=== PATIENT | male | born 1980 | race Caucasian/White ===

== ENCOUNTER 2018-11-10 18:46 | Emergency (ER) | payer BC ==
[2018-11-10] MEDS ORDERED: Ketorolac 60 MG/2 ML SDV IM ONE (19:13)
[2018-11-10] MEDS ORDERED: methylPREDNISolone Sodium Succinate 125 MG/2 ML SDV IM ONE (19:13)
--- NOTE | 2018-11-10 19:19 | EDM.PDOC ---
ED HPI GENERAL MEDICAL PROBLEM - General Chief Complaint: Back Pain or Injury Stated Complaint: PINCHED NERVE Time Seen by Provider: 11/10/18 19:04 Source of Information: Reports: Patient History Limitations: Reports: No Limitations - History of Present Illness INITIAL COMMENTS - FREE TEXT/NARRATIVE: This is a 38-year-old male. He works on the [employer] and he states that usually once a year he'll conduct week his back and when he does this he normally gets a steroid shot and then after about 24 hours his back is good to go. He states he make sure he does proper lifting but even with that sometimes his back it's out of order. The pain normally is in the right SI joint and seems to go down the posterior leg to his knee and sometimes in the lower back as well. He states it is the typical right lower back and down the back of his thigh. He denies any other change in symptoms. He is somewhat stiff and slow to get up from the bed but he is able to do so. He denies any other acute symptoms. He has no numbness tingling in the right lower extremity. Back Pain Score (Numeric/FACES): 4 Past Medical History - Past Health History Medical/Surgical History: Denies Medical/Surgical History Social & Family History - Tobacco Use Smoking Status *Q: Current Every Day Smoker Years of Tobacco use: 5 Packs/Tins Daily: 0.2 - Caffeine Use Caffeine Use: Reports: Coffee ED ROS GENERAL - Review of Systems Review Of Systems: See Below Constitutional: Denies: Fever, Chills HEENT: Reports: No Symptoms Respiratory: Reports: No Symptoms Cardiovascular: Reports: No Symptoms Endocrine: Reports: No Symptoms GI/Abdominal: Reports: No Symptoms : Reports: No Symptoms Musculoskeletal: Reports: Other (As per history of present illness) Skin: Reports: No Symptoms Neurological: Reports: Other (Right sciatica) Psychiatric: Reports: No Symptoms Hematologic/Lymphatic: Reports: No Symptoms ED EXAM,LOWER BACK PAIN/INJURY - Physical Exam Exam: See Below Exam Limited By: No Limitations General Appearance: Alert, WD/WN, No Apparent Distress Eye Exam: Bilateral Eye: Normal Inspection Ears: Normal External Exam Nose: Normal Inspection Throat/Mouth: Normal Inspection, Normal Lips, Normal Voice, No Airway Compromise Head: Normocephalic Neck: Supple Respiratory/Chest: No Respiratory Distress Back Exam: Other (He describes tenderness of the right SI joint in the right lower back slightly, the pain runs down the posterior thigh to about the knee but no further, there is no numbness or tingling of his toes, he is able to bend but it is slow.) Extremities: Normal Inspection, Normal Range of Motion Neurological: Alert, Normal Mood/Affect Psychiatric: Normal Affect, Normal Mood Skin Exam: Warm, Dry Course - Vital Signs Last Recorded V/S: Last Vital Signs Temp 98.2 F 11/10/18 18:53 Pulse 61 11/10/18 18:53 Resp 14 11/10/18 18:53 BP 111/56 L 11/10/18 18:53 Pulse Ox 100 11/10/18 18:53 - Orders/Labs/Meds Orders: Active Orders 24 hr Category Date Time Status Ketorolac [Toradol] Med 11/10/18 19:13 Once 60 mg IM ONETIME ONE methylPREDNISolone Sod Succ [Solu-MEDROL] Med 11/10/18 19:13 Once 125 mg IM ONETIME ONE Departure - Departure Time of Disposition: 19:17 Disposition: Home, Self-Care 01 Condition: Good Clinical Impression: Sacroiliac joint dysfunction of right side, Right sided sciatica Low back strain Qualifiers: Encounter type: initial encounter Qualified Code(s): S39.012A - Strain of muscle, fascia and tendon of lower back, initial encounter - Discharge Information *PRESCRIPTION DRUG MONITORING PROGRAM REVIEWED*: Not Applicable *COPY OF PRESCRIPTION DRUG MONITORING REPORT IN PATIENT FILIBERTO: Not Applicable Instructions: Sacroiliac Joint Dysfunction Referrals: PCP,None [Primary Care Provider] - Additional Instructions: Rest and use heat to the sacroiliac joint, gentle activity over the next 24 hours to allow the medications to do their job, continue with your proper body mechanics when lifting, follow-up with your family doctor if this does not ease the symptoms, return to the ER if needed - My Orders Last 24 Hours: My Active Orders 11/10/18 19:13 Ketorolac [Toradol] 60 mg IM ONETIME ONE methylPREDNISolone Sod Succ [Solu-MEDROL] 125 mg IM ONETIME ONE - Assessment/Plan Last 24 Hours: My Active Orders 11/10/18 19:13 Ketorolac [Toradol] 60 mg IM ONETIME ONE methylPREDNISolone Sod Succ [Solu-MEDROL] 125 mg IM ONETIME ONE
== END 2018-11-10 19:45 | disposition home or self-care (01) ==
LOC: JD.ED 18:46
DX: S39.012A Strain of muscle, fascia and tendon of lower back, initial encounter (principal); M53.3 Sacrococcygeal disorders, not elsewhere classified; M54.41 Lumbago with sciatica, right side; F17.210 Nicotine dependence, cigarettes, uncomplicated
CPT/HCPCS: 96372; 99283; J1885; J2930